=== PATIENT | male | born 1975 | race Caucasian/White ===

== ENCOUNTER 2023-05-27 15:21 | Emergency (ER) | payer MEDICAID, SELFPAY ==
[~2023-05-27] VITALS: Ht 182.9 cm; Wt 108.9 kg
[2023-05-27 15:42] VITALS: TEMP 98.5; O2SAT 98
[2023-05-27 16:15] VITALS: BP 148/87; PULSE 70; RESP 16
[2023-05-27] MEDS ORDERED: IBUPROFEN 600MG TABLET PO ONE (16:15)
[2023-05-27] MEDS ORDERED: ONDANSETRON 4MG ODT PO ONE (16:15)
[2023-05-27 16:34] LABS: BASOPHILS % 0.7 % (0.0-2.0); EOSINOPHILS % 0.7 % (0.0-5.0); HEMATOCRIT. 48.3 % (42.0-52.0); HEMOGLOBIN. 16.8 g/dL (14.0-18.0); LYMPHOCYTES % 42.5 % (20.0-50.0); MEAN CORPUSCULAR HEMOGLOBIN 30.3 pg (28.0-32.0); MEAN CORPUSCULAR VOLUME 87.1 fL (80.0-94.0); MEAN PLATELET VOLUME 9.8 fl (7.4-10.4); MONOCYTES % 7.5 % (2.0-8.0); NEUTROPHILS % 48.6 % (40.0-76.0); PLATELET 194 x1000/uL (130-400); RED BLOOD CELL COUNT 5.55 mill/uL (4.7-6.1); RED CELL DISTRIBUTION WIDTH 13.7 % (11.6-14.6)
[2023-05-27 16:40] LABS: CHLORIDE 112 mEq/L (98-107)
[2023-05-27 17:24] LABS: CLARITY URINE CLEAR (CLEAR); COLOR URINE YELLOW (YELLOW); KETONES URINE NEGATIVE (NEGATIVE); LEUKOCYTE ESTERASE URINE NEGATIVE (NEGATIVE); NITRITE URINE NEGATIVE (NEGATIVE); OCCULT BLOOD URINE NEGATIVE (NEGATIVE); PH URINE 5.5 (4.5-8.0); PROTEIN URINE NEGATIVE (NEGATIVE); UROBILINOGEN URINE 0.2 E.U./dL (0.2-1.0)
[2023-05-27] MEDS ORDERED: IBUP-2029 MT (18:47)
[2023-05-27] MEDS ORDERED: BACL-141 MT (18:47)
== END 2023-05-27 19:31 | disposition home or self-care (01) ==
LOC: ER 16:02
DX: K76.0 Fatty (change of) liver, not elsewhere classified (principal); Z00.00 Encounter for general adult medical examination without abnormal findings; Z88.0 Allergy status to penicillin
CPT/HCPCS: 80053; 81003; 82248; 83690; 85025; 36415; 74176; 76705; 99284; Q0162

== ENCOUNTER 2023-11-06 09:19 | Emergency (ER) | payer MEDICAID ==
[~2023-11-06] VITALS: Ht 172.7 cm; Wt 91.0 kg
[~2023-11-06 09:19] MED LIST: BACL-141 MT; IBUP-2029 MT
[2023-11-06 09:28] VITALS: O2SAT 98
[2023-11-06] MEDS ORDERED: SULF1TAB48 MT (10:31)
[2023-11-06 11:07] VITALS: BP 135/90; PULSE 65; RESP 15; TEMP 98.4
== END 2023-11-06 11:10 | disposition home or self-care (01) ==
LOC: ER 09:19
DX: L73.9 Follicular disorder, unspecified (principal)
CPT/HCPCS: 99283